=== PATIENT | male | born 1975 ===

== ENCOUNTER 2023-06-09 14:18 | Emergency (ER) | payer SELFPAY ==
[2023-06-09] MEDS: Sodium Chloride 0.9% 10 ML Syringe FLUSH PRN (15:20)
[2023-06-09 15:28] LABS: BASOPHILS PERCENT AUTO 0.2 % (0.0-1.0); IMMATURE GRAN ABSOLUTE AUTO 0.06 K/mm3 (0.00-0.05); IMMATURE GRAN PERCENT AUTO 0.4 % (0.0-0.4); LYMPHOCYTES ABSOLUTE AUTO 0.6 K/mm3 (1.0-4.8); LYMPHOCYTES PERCENT AUTO 3.8 % (24.0-44.0); MEAN CORPUSCULAR HEMOGLOBIN 30.1 pg (28.0-32.0); MEAN CORPUSCULAR HGB CONC 35.4 g/dl (32.0-36.0); MONOCYTES ABSOLUTE AUTO 0.4 K/mm3 (0.0-0.8); MONOCYTES PERCENT AUTO 2.3 % (0.0-8.0); NEUTROPHILS ABSOLUTE AUTO 15.1 K/mm3 (1.8-7.7); NEUTROPHILS PERCENT AUTO 93.3 % (41.0-71.0); PLATELET COUNT,PLT 284 K/mm3 (150-400); WHITE BLOOD CELL COUNT,WBC 16.18 K/mm3 (3.9-11.3)
[2023-06-09 15:56] LABS: A/G RATIO 1.1 (1-2); ALBUMIN 4.2 g/dl (3.4-5.0); ANION GAP 15.1 (5-15); BILIRUBIN TOTAL 0.9 mg/dL (0.2-1.0); BUN/CREATININE RATIO 17.8 (14-18); C-REACTIVE PROTEIN 0.09 mg/dL (<0.30); CALCIUM 9.6 mg/dL (8.5-10.1); CREATININE 0.9 mg/dL (0.55-1.02); EST CRCL DRUG DOSING (CG) 98.24 mL/min; POTASSIUM,K 3.1 mEq/L (3.5-5.1); PROTEIN TOTAL,TP 8.1 g/dl (6.4-8.2)
[2023-06-09 16:12] LABS: HEMATOCRIT 48.9 % (42.0-52.0); HEMOGLOBIN 17.3 gm/dl (14.0-18.0); MEAN PLATELET VOLUME 8.8 fl (9.4-12.4); RED BLOOD CELL COUNT 5.75 M/mm3 (4.52-5.90)
[2023-06-09] MEDS: diphenhydrAMINE 50 MG/ML SDV IVPUSH ONE (16:14)
[2023-06-09] MEDS: Sodium Chloride 0.9% 1,000 ML IV STA (16:14)
[2023-06-09] MEDS: Metoclopramide 10 MG/2 ML SDV IVPUSH ONE (16:15)
== END 2023-06-09 17:44 | disposition home or self-care (01) ==
LOC: JD.ED 14:18
DX: H81.10 Benign paroxysmal vertigo, unspecified ear (principal); Z79.899 Other long term (current) drug therapy
CPT/HCPCS: 36415; 70450; 70450-26; 80053; 85025; 86140; 96361; 96374; 96375; 99284-25; J1200; J2765; J3490; J7030